=== PATIENT | male | born 1940 | race Caucasian/White ===

== ENCOUNTER 2020-10-18 10:43 | Outpatient (CLI) | payer MEDICARE, SELFPAY ==
--- NOTE | ~2020-10-18 | XR_ITS ---
EXAMINATION: XR knee LT min 4V DATE: 10/18/2020 11:17 INDICATION: Unilateral primary osteoarthritis, left knee. TECHNIQUE: 4 views of left knee were obtained. COMPARISON: Left knee radiographs 09/02/17 FINDINGS: There is varus angulation at the knee. No fracture. There is moderate osteoarthritis of med ial compartment and mild osteoarthritis of lateral and patellofemoral compartments. There is a small knee joint effusion. IMPRESSION: 1. Moderate left knee osteoarthritis. 2. Small left knee joint effusion. Reviewed, dictated and finalized at location B. RGIST IMMUNOLOGIST
== END 2020-10-18 10:44 | disposition home or self-care (01) ==
LOC: ANHIMG 10:46
PROVIDERS: PCP Physician Assistant; Visit Provider Physician Assistant
DX: M17.12 Unilateral primary osteoarthritis, left knee (principal); M25.462 Effusion, left knee
CPT/HCPCS: 73564

== ENCOUNTER 2020-11-07 13:06 | Outpatient (CLI) | payer MEDICARE, SELFPAY ==
--- NOTE | ~2020-11-07 | XR_ITS ---
XR abdomen/kub 1V 11/07/2020 13:32 Indication: Renal stones Procedure: KUB Comparison: No prior studies for comparison. Findings: Bowel gas pattern within normal limits. Moderate colonic fecal loading. No abnormal calcifi cations. No acute osseous abnormality. Moderate lumbar spondylosis. Impression: 1: No acute abdominal abnormality. Reviewed, dictated and finalized at location B. RAL RESOURCES TECHNICIAN Impression: 1: No acute abdominal abnormality.
== END 2020-11-07 13:07 | disposition home or self-care (01) ==
PROVIDERS: PCP Physician Assistant; Visit Provider Internal Medicine Nephrology
DX: N20.0 Calculus of kidney (principal)
CPT/HCPCS: 74018

== ENCOUNTER 2022-01-22 07:35 | Outpatient (RCR) | payer MEDICARE, SELFPAY ==
[2021-12-12 13:28] VITALS: BMI 33.3
--- NOTE | 2022-03-20 14:29 | PCWOUND ---
WOCN NOTE patient walked into the wound center wanting help with edema to legs. patient V# , did education on edema control. provided patient with 2 pairs of tubigrip and called Dr Moscoso office to see if they will call in the lotrisone cream for the patient.
== END 2022-03-12 23:59 | disposition home or self-care (01) ==
LOC: ANHWOC 07:35
PROVIDERS: PCP Family Medicine; Visit Provider Family Medicine
DX: I83.009 Varicose veins of unspecified lower extremity with ulcer of unspecified site (principal)
CPT/HCPCS: 99211; 99212; A9270; G0463

== ENCOUNTER 2022-01-24 09:18 | Outpatient (CLI) | payer MEDICARE, SELFPAY ==
--- NOTE | ~2022-01-24 | US_ITS ---
EXAMINATION: US renal BI DATE: 01/24/2022 10:10 INDICATION: Nonspecific abnormal results of kidney function TECHNIQUE: Multiple grayscale and Doppler ultrasound images of the kidneys were obtained. COMPARISON: None. FINDINGS: The right kidney measures 12.9 x 5.9 x 6.3 cm. The left kidney measures 16.1 x 5.8 x 7.1 cm and contains cysts measuring up to 6.1 cm. The kidneys demonstrate normal parenchymal echogenicity. There is no hydronephrosis. The bladder is normal. IMPRESSION: 1. Unremarkable kidneys without hydronephrosis. Reviewed, dictated and finalized at location F.
== END 2022-01-24 09:19 | disposition home or self-care (01) ==
LOC: ANHIMG 09:21
PROVIDERS: PCP Family Medicine; Visit Provider Internal Medicine Nephrology
DX: R94.4 Abnormal results of kidney function studies (principal)
CPT/HCPCS: 76775

== ENCOUNTER 2024-03-20 08:36 | Outpatient (RCR) | payer MEDICARE, SELFPAY ==
[2024-03-20 08:43] VITALS: BMI 33.5
--- NOTE | 2024-04-09 09:52 | PCWOUND ---
WOCN NOTE Patient did not show up for his scheduled appointment today(04/09/24). No call was made by patient to cancel or reschedule.
== END 2024-06-03 15:06 | disposition home or self-care (01) ==
LOC: ANHWOC 08:36
PROVIDERS: PCP Family Medicine; Visit Provider Family Medicine
DX: I87.2 Venous insufficiency (chronic) (peripheral) (principal)
CPT/HCPCS: 99214; A9270; G0463